=== PATIENT | female | born 1935 | race Caucasian/White ===

== ENCOUNTER 2022-12-03 07:12 | Outpatient (CLI) | payer MEDICARE, SELFPAY ==
[2022-12-03 07:44] LABS: SARS Antigen* negative (Negative)
== END 2022-12-03 07:13 | disposition home or self-care (01) ==
PROVIDERS: PCP Family Medicine; Visit Provider Internal Medicine Gastroenterology
DX: Z12.11 Encounter for screening for malignant neoplasm of colon (principal); K63.5 Polyp of colon; K57.30 Diverticulosis of large intestine without perforation or abscess without bleeding; Z86.010 Personal history of colon polyps
CPT/HCPCS: 45385; 87426; 88305; J2250; J3010

== ENCOUNTER 2025-01-05 10:45 | Outpatient (RCR) | payer MEDICARE, SELFPAY | END 2025-01-05 16:25 | disposition home or self-care (01) | PROVIDERS: PCP Family Medicine; Visit Provider Orthopaedic Surgery | DX: S62.101D Fracture of unspecified carpal bone, right wrist, subsequent encounter for fracture with routine healing (principal); Z51.89 Encounter for other specified aftercare | CPT/HCPCS: 97035; 97110; 97140; 97165; 97530; X5282 ==

== ENCOUNTER 2025-08-17 17:00 | Outpatient (RCR) | payer MEDICARE, SELFPAY | END 2025-08-18 07:08 | disposition home or self-care (01) | PROVIDERS: PCP Family Medicine; Visit Provider Family Medicine | DX: R20.2 Paresthesia of skin (principal); Z51.89 Encounter for other specified aftercare | CPT/HCPCS: 97035; 97110; 97140; 97165; X5282 ==